=== PATIENT | male | born 1970 | race Caucasian/White ===

== ENCOUNTER 2021-12-13 17:29 | Outpatient (REF) | payer BC, SELFPAY ==
[2021-12-13 20:38] LABS: ALT 42 U/L (16-63); AST 23 U/L (15-37); Albumin 4.3 g/dL (3.4-5.0); Alkaline Phosphatase 102 U/L (46-116); Anion Gap 9.5 mmol/L (3-11); BUN 12 mg/dL (7-18); Bilirubin, Total 0.6 mg/dL (0.2-1.0); CO2 28.5 mmol/L (21.0-32.0); CREATININE 0.9 mg/dL (0.70-1.30); Calcium 9.7 mg/dL (8.5-10.1); Calculated LDL 149 mg/dL (<100); Chloride 101 mmol/L (98-107); Cholesterol 261 mg/dL (<200); Glucose 95 mg/dL (74-106); HDL Cholesterol 39 mg/dL (40-60); Potassium 4.6 mmol/L (3.5-5.1); Sodium 139 mmol/L (136-145); Total Protein 7.9 g/dL (6.4-8.2); Triglyceride 369 mg/dL (<150); Vitamin B12 992 pg/mL (193-986)
[2021-12-15 11:25] LABS: Lyme Ab w Rflx to Lyme Confirm Negative (Negative)
== END 2021-12-13 17:30 | disposition home or self-care (01) ==
LOC: NCHCN 17:29
PROVIDERS: PCP Family Medicine; Visit Provider Nurse Practitioner Family
DX: Z00.00 Encounter for general adult medical examination without abnormal findings (principal); R03.0 Elevated blood-pressure reading, without diagnosis of hypertension; R20.2 Paresthesia of skin; M25.59 Pain in other specified joint; Z12.11 Encounter for screening for malignant neoplasm of colon; Z12.12 Encounter for screening for malignant neoplasm of rectum
CPT/HCPCS: 80053; 80061; 82607; 83036; 86618

== ENCOUNTER 2022-06-19 08:48 | Outpatient (REF) | payer OTHER, SELFPAY ==
[2022-06-19 15:48] LABS: Calculated LDL 145 mg/dL (<100); Cholesterol 235 mg/dL (<200); Glucose 99 mg/dL (74-106); HDL Cholesterol 43 mg/dL (40-60); Triglyceride 237 mg/dL (<150)
== END 2022-06-19 08:49 | disposition home or self-care (01) ==
LOC: NCHCN 08:48
PROVIDERS: PCP Family Medicine; Visit Provider Nurse Practitioner Family
DX: R03.0 Elevated blood-pressure reading, without diagnosis of hypertension (principal); E78.70 Disorder of bile acid and cholesterol metabolism, unspecified
CPT/HCPCS: 80061; 82947

== ENCOUNTER 2023-02-25 09:49 | Outpatient (REF) | payer OTHER, SELFPAY ==
[2023-02-25 17:05] LABS: ALT 48 U/L (16-63); AST 24 U/L (15-37); Albumin 4.1 g/dL (3.4-5.0); Alkaline Phosphatase 95 U/L (46-116); Bilirubin, Total 1.4 mg/dL (0.2-1.0); Calculated LDL 72 mg/dL (<100); Cholesterol 153 mg/dL (<200); HDL Cholesterol 45 mg/dL (40-60); Total Protein 7.9 g/dL (6.4-8.2); Triglyceride 181 mg/dL (<150)
[2023-02-25 17:22] LABS: Bilirubin, Direct 0.3 mg/dL (0.0-0.2)
== END 2023-02-25 09:50 | disposition home or self-care (01) ==
LOC: NCHCN 09:49
PROVIDERS: PCP Family Medicine; Visit Provider Nurse Practitioner Family
DX: E78.70 Disorder of bile acid and cholesterol metabolism, unspecified (principal); Z00.00 Encounter for general adult medical examination without abnormal findings
CPT/HCPCS: 80061; 80076

== ENCOUNTER 2023-03-26 16:12 | Emergency (ER) | payer OTHER, SELFPAY ==
[2023-03-26] VITALS (48 sets, daily range): BP systolic 107–139; BP diastolic 61–99; PULSE 76–87; RESP 10–28; O2SAT 93–97
--- NOTE | 2023-03-26 16:00 | RT.EKG_ITS ---
APPROVED REPORT Exam: Resting ECG Reason for Exam: Patient Location: E HR:86 bpm ECG Measurements Heart Rate 86 AXIS WY 189 P 53 QRSd 68 QRS 20 QT 354 T 43 QTc 424 Conclusion Sinus rhythm...normal P axis, V-rate 60- 99 Probable left atrial enlargement...P >50mS, <-0.10mV V1 Extensive anterior infarct, acute...ST >0.20mV, V1-V6 sinus rhtyhm, normal axis, normal intervas, ST segment elevation V1-V5
--- NOTE | 2023-03-26 16:00 | DI.RAD_ITS ---
Exam(s) XR PORTABLE CHEST AP EXAM: XR PORTABLE CHEST AP CLINICAL HISTORY: chest pain TECHNIQUE: 2D digital imaging was performed of the chest. One image was obtained. An AP view was ob tained. COMPARISON: No exams were available for comparison FINDINGS: MEDIASTINUM: Normal. HEART: Normal. PULMONARY VASCULATURE: Normal. LUNGS: Clear. PLEURAL SPACE: No pleural effusion or pneumothorax. BONE:Within normal limits for the patient's age. OTHER FINDINGS:Normal. IMPRESSION: No acute pulmonary findings. DATA REPOSITORY: RADIATION DOSE DELIVERED:
[2023-03-26] MEDS: Clopidogrel 300 MG TAB PO (16:20)
[2023-03-26] MEDS: Tenecteplase 50 MG KIT IVP (16:24)
[2023-03-26 16:25] LABS: Abs Immature Grans 0.08 10^3/uL (0.0-0.06); Absolute Basophil Count 0.06 10^3/uL (0.0-0.2); Basophils % 0.4; Eosinophils % 1.4; HCT 45.6 % (40.0-50.0); HGB 15.8 g/dL (13.5-17.5); Immature Grans % 0.5; Lymphocytes % 19.9; MCH 30.3 pg (27.0-33.0); MCHC 34.6 % (32.0-36.0); MCV 88 fL (80-95); MPV 10.6 fL (8.0-11.0); Monocytes % 7.6; Neutrophils % 70.2; Platelet Count 308 10^3/uL (130-400); RBC 5.21 10^6/uL (4.36-5.78); RDW 12.8 % (11.8-14.1); RDW-SD 41.1 fL; WBC 16.22 10^3/uL (4.4-10.8)
[2023-03-26 16:26] LABS: Absolute Eosinophil Count 0.23 10^3/uL (0.0-0.7); Absolute Lymphocyte Count 3.23 10^3/uL (1.2-3.4); Absolute Monocyte Count 1.23 10^3/uL (0.1-0.8); Absolute Neutrophil Count 11.39 10^3/uL (1.2-6.7)
[2023-03-26] MEDS: Atorvastatin 40 MG TAB 80 MG PO (16:26)
--- NOTE | 2023-03-26 16:28 | ED.GENADUL_ITS ---
Discharge Plan Disposition Patient Disposition: Transfer-Acute Inpatient Care Specific Acute Inpt Facility: [facility] Condition: Stable Discharge Details Chief Complaint: Chest Pain Clinical Impression: ST elevation (STEMI) myocardial infarction Primary Care Provider: Becka Perez V ED Provider: Vinny Padilla Home Meds and New Rx's Prescriptions: No Action rosuvastatin 10 mg Tablet 10 mg PO DAILY Rx Instructions: every other day Medical Decision Making 52-year-old male history of hyperlipidemia, presents with nonexertional anterior chest pain that began 45 minutes before 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 Stat consultation with interventional cardiology at [facility] has been placed, patient has been accepted to the [facility] by Dr. Ramírez. Patient counseled and consented regarding treatment and transfer. Currently hemodynamically stable resting more comfortably. Will perform post lytics EKG, chest x-ray labs. 5: 04 patient resting comfortably hemodynamically stable great improvement of skin color and perfusion. Chest pain minimal. DHART air in route HPI General Date/Time Provider Initiated Documentation: 03/26/23 16:13 . 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 Anterior nature pressure-like. Given symptomatology and EKG findings in the field patient was administered 325 aspirin, glycerin with some mild improvement. Related Data Home Medications Medication Instructions Recorded Confirmed rosuvastatin 10 mg tablet 10 mg PO DAILY 03/26/23 03/26/23 Allergies Allergy/AdvReac Type Severity Reaction Status Date / Time No Known Allergies Allergy Unverified 03/26/23 16:13 General Stated Complaint: Chest Pain SAJAN: 2 Review of Systems Narrative: Review of Systems Constitutional: negative Eyes: negative ENT: negative Cardiovascular: Chest pain Respiratory: negative Gastrointestinal: negative : negative Musculoskeletal: negative Skin: negative Neurologic: negative Psych: negative PFSH All Active Problems (Updated 03/26/23 @ 17:05 by Vinny Padilla MD) ST elevation (STEMI) myocardial infarction (Acute) Social History Smoking/Tobacco Use Status: Unknown Smoking risk assessment performed?: Yes Substance use type: does not use Exam Narrative Exam Narrative: Physical Examination General: alert, awake, cooperative, resting comfortably, no acute distress HEENT: normocephalic, atraumatic; PERRL, EOM intact, conjunctiva normal; no nasal discharge; moist mucous membranes, oral and pharyngeal mucosa normal, tolerating secretions Neck: supple, trachea midline; full ROM Chest: normal to inspection Respiratory: normal respiratory effort, speaking in full sentences, clear to auscultation, no wheezing, rales or rhonchi Cardiac: regular rate, regular rhythm, S1S2 intact, no murmurs rubs or gallops; strong radial pulses bilaterally GI: abdomen soft, non-tender, non-distended; no palpable mass or hepatosplenomegaly Skin: no lesions, rashes or trauma appreciated Neuro: AAOx3, normal speech, moving all extremities Extremities: No appreciable peripheral edema Psych: Appropriate mood and affect Course Vital Signs Vital signs: Vital Signs Pulse 87 03/26/23 16:14 Respiratory Rate 18 03/26/23 16:14 Blood Pressure 115/79 03/26/23 16:14 Pulse Oximetry 94 03/26/23 16:14 Pulse 87 03/26/23 16:14 Respiratory Rate 18 03/26/23 16:18 Respiratory Effort Normal, Non-Labored 03/26/23 16:18 Respiratory Depth Normal 03/26/23 16:18 Respiratory Pattern Normal 03/26/23 16:18 Blood Pressure 115/79 03/26/23 16:14 Pulse Oximetry 94 03/26/23 16:14 Oxygen Delivery Method Room Air 03/26/23 16:14 Oxygen Flow Rate 0 03/26/23 16:14 Lab/Test Results Lab/Test Results: Laboratory Tests Range/Units 03/26/23 16:19 WBC (4.4-10.8) 10^3/uL 16.22 H RBC (4.36-5.78) 10^6/uL 5.21 Hgb (13.5-17.5) g/dL 15.8 Hct (40.0-50.0) % 45.6 MCV (80-95) fL 88 MCH (27.0-33.0) pg 30.3 MCHC (32.0-36.0) % 34.6 RDW (11.8-14.1) % 12.8 Plt Count (130-400) 10^3/uL 308 MPV (8.0-11.0) fL 10.6 Immature Gran % 0.5 Neutrophils % 70.2 Lymphocytes % 19.9 Monocytes % 7.6 Eosinophils % 1.4 Basophils % 0.4 Nucleated RBC % (0.0-0.3) % 0.0 Absolute Neutrophils (1.2-6.7) 10^3/uL 11.39 H Absolute Lymphocytes (1.2-3.4) 10^3/uL 3.23 Absolute Monocytes (0.1-0.8) 10^3/uL 1.23 H Absolute Eosinophils (0.0-0.7) 10^3/uL 0.23 Absolute Basophils (0.0-0.2) 10^3/uL 0.06
--- NOTE | 2023-03-26 16:30 | RT.EKG_ITS ---
APPROVED REPORT Exam: Resting ECG Reason for Exam: post lytics Patient Location: E HR:80 bpm ECG Measurements Heart Rate 80 AXIS ID 144 P 0 QRSd 117 QRS 102 QT 410 T -39 QTc 482 Conclusion Sinus rhythm...normal P axis, V-rate 60- 99 Ventricular premature complex...V complex w/ short R-R interval Left atrial enlargement...P, P'>60mS, <-0.15mV V1 Nonspecific intraventricular conduction delay...QRSd >115mS, not LBBB/RBBB Probable anteroseptal infarct, recent...Q, ST>0.15mV, T neg, V1-V2 sinus rhythm, normal axis, ST segment elevation ateriior septal , with deep q waves
[2023-03-26 16:39] LABS: INR 0.9 (0.9-1.1); PTT Activated 26.7 sec (21.5-31.9); Prothrombin Time 9.6 sec (9.3-11.0)
[2023-03-26 16:45] LABS: ALT 55 U/L (16-63); AST 63 U/L (15-37); Albumin 4.1 g/dL (3.4-5.0); Alkaline Phosphatase 98 U/L (46-116); Anion Gap 9.8 mmol/L (3-11); BUN 12 mg/dL (7-18); Bilirubin, Total 0.8 mg/dL (0.2-1.0); CO2 24.2 mmol/L (21.0-32.0); CREATININE 0.9 mg/dL (0.70-1.30); Calcium 9.2 mg/dL (8.5-10.1); Chloride 102 mmol/L (98-107); Estimated GFR 102.12 (mL/min/1.73m2); Glucose 129 mg/dL (74-106); Potassium 3.7 mmol/L (3.5-5.1); Sodium 136 mmol/L (136-145)
[2023-03-26 16:53] LABS: Troponin I 2510 ng/L (<or=60)
--- NOTE | 2023-03-26 16:59 | NUR.NOTE ---
after TNK admin pt showed significant improvement in chest pain and color. pt pain free at this time. A&O x4.
[2023-03-26 17:07] LABS: NT-proBNP 32 pg/mL (<300)
== END 2023-03-26 17:23 | disposition short-term general hospital (02) ==
PROVIDERS: Student in an Organized Health Care Education/Training Program; Emergency Provider Emergency Medicine; PCP Family Medicine
DX: I21.3 ST elevation (STEMI) myocardial infarction of unspecified site (principal); E78.5 Hyperlipidemia, unspecified
CPT/HCPCS: 36415; 80053; 93005; 96365; 96375; 96376; 99285; 71045; 83735; 83880; 84484; 85025; 85610; 85730; 93010; J3101

== ENCOUNTER 2023-04-03 11:04 | Outpatient (RCR) | payer OTHER, BC, SELFPAY | END 2023-04-10 23:59 | disposition home or self-care (01) | LOC: CR 11:04 | PROVIDERS: PCP Family Medicine; Visit Provider Internal Medicine Cardiovascular Disease ==

== ENCOUNTER 2023-04-26 09:17 | Outpatient (REF) | payer OTHER, BC, SELFPAY ==
[2023-04-26 17:33] LABS: ALT 66 U/L (16-63); AST 41 U/L (15-37); Alkaline Phosphatase 107 U/L (46-116); Anion Gap 9.4 mmol/L (3-11); BUN 13 mg/dL (7-18); Bilirubin, Total 1.2 mg/dL (0.2-1.0); CO2 26.6 mmol/L (21.0-32.0); CREATININE 0.9 mg/dL (0.70-1.30); Calcium 9.4 mg/dL (8.5-10.1); Chloride 106 mmol/L (98-107); Estimated GFR 102.12 (mL/min/1.73m2); Glucose 110 mg/dL (74-106); NT-proBNP 644 pg/mL (<300); Potassium 4.3 mmol/L (3.5-5.1); Sodium 142 mmol/L (136-145); Total Protein 7.5 g/dL (6.4-8.2)
== END 2023-04-26 09:18 | disposition home or self-care (01) ==
LOC: NCHCN 09:17
PROVIDERS: PCP Family Medicine; Visit Provider Nurse Practitioner Family
DX: I21.3 ST elevation (STEMI) myocardial infarction of unspecified site (principal); R79.89 Other specified abnormal findings of blood chemistry; R17 Unspecified jaundice
CPT/HCPCS: 80053; 83880

== ENCOUNTER 2023-05-10 08:00 | Outpatient (RCR) | payer OTHER, SELFPAY | END 2023-05-10 23:59 | disposition home or self-care (01) | LOC: CR 08:00 | PROVIDERS: PCP Family Medicine; Visit Provider Internal Medicine Cardiovascular Disease | DX: I25.2 Old myocardial infarction (principal); Z51.89 Encounter for other specified aftercare | CPT/HCPCS: S9472 ==

== ENCOUNTER 2023-06-05 08:00 | Outpatient (RCR) | payer OTHER, SELFPAY | END 2023-06-10 23:59 | disposition home or self-care (01) | LOC: CR 08:00 | PROVIDERS: PCP Family Medicine; Visit Provider Internal Medicine Cardiovascular Disease | DX: I25.2 Old myocardial infarction (principal); Z95.2 Presence of prosthetic heart valve; Z51.89 Encounter for other specified aftercare | CPT/HCPCS: S9472 ==

== ENCOUNTER 2023-07-10 11:16 | Outpatient (RCR) | payer OTHER, BC, SELFPAY | END 2023-07-11 23:59 | disposition home or self-care (01) | LOC: CR 11:16 | PROVIDERS: PCP Family Medicine; Visit Provider Internal Medicine Cardiovascular Disease | DX: I25.2 Old myocardial infarction (principal); Z95.5 Presence of coronary angioplasty implant and graft; Z51.89 Encounter for other specified aftercare | CPT/HCPCS: S9472 ==

== ENCOUNTER 2023-07-23 09:12 | Outpatient (REF) | payer OTHER, SELFPAY ==
[2023-07-23 18:45] LABS: ALT 42 U/L (16-63); AST 26 U/L (15-37); Albumin 3.9 g/dL (3.4-5.0); Alkaline Phosphatase 94 U/L (46-116); Anion Gap 9.5 mmol/L (3-11); BUN 16 mg/dL (7-18); Bilirubin, Total 1.2 mg/dL (0.2-1.0); CO2 28.5 mmol/L (21.0-32.0); CREATININE 0.9 mg/dL (0.70-1.30); Calcium 9.4 mg/dL (8.5-10.1); Chloride 100 mmol/L (98-107); Creatine Kinase 122 U/L (39-308); Estimated GFR 102.12 (mL/min/1.73m2); Glucose 109 mg/dL (74-106); NT-proBNP 165 pg/mL (<300); Potassium 4.1 mmol/L (3.5-5.1); Sodium 138 mmol/L (136-145)
[2023-07-23 20:19] LABS: Calculated LDL 43 mg/dL (<100); Cholesterol 119 mg/dL (<200); HDL Cholesterol 46 mg/dL (40-60); Total Protein 7.2 g/dL (6.4-8.2); Triglyceride 152 mg/dL (<150)
== END 2023-07-23 09:13 | disposition home or self-care (01) ==
LOC: NCHCN 09:12
PROVIDERS: PCP Family Medicine; Visit Provider Nurse Practitioner Family
DX: I25.10 Atherosclerotic heart disease of native coronary artery without angina pectoris
CPT/HCPCS: 80053; 80061; 82550; 83880

== ENCOUNTER 2023-07-29 08:00 | Outpatient (RCR) | payer OTHER, BC, SELFPAY | END 2023-08-10 23:59 | disposition home or self-care (01) | LOC: CR 08:00 | PROVIDERS: PCP Family Medicine; Visit Provider Internal Medicine Cardiovascular Disease | DX: I25.2 Old myocardial infarction (principal); Z95.5 Presence of coronary angioplasty implant and graft; Z51.89 Encounter for other specified aftercare | CPT/HCPCS: S9472 ==

== ENCOUNTER 2024-02-17 11:09 | Emergency (ER) | payer OTHER, SELFPAY ==
[2024-02-17] VITALS (10 sets, daily range): BP systolic 104–120; BP diastolic 70–85; PULSE 66–82; RESP 15–21; TEMP 36.5–36.7; O2SAT 96–98
--- NOTE | 2024-02-17 11:00 | RT.EKG_ITS ---
APPROVED REPORT Exam: Resting ECG Reason for Exam: chest pain Patient Location: E HR:74 bpm ECG Measurements Heart Rate 74 AXIS WA 178 P 68 QRSd 76 QRS 8 QT 378 T 55 QTc 419 Conclusion Sinus rhythm...normal P axis, V-rate 60- 99 Probable left atrial enlargement...P >50mS, <-0.10mV V1 Anterior infarct, old...Q >40mS, abnormal ST-T, V2-V5 no stemi
--- NOTE | 2024-02-17 11:40 | ED.GENADUL_ITS ---
Discharge Plan Disposition Patient Disposition: Against Medical Advice Condition: Stable Discharge Details Clinical Impression: Chest pain Primary Care Provider: Becka Perez V ED Provider: Suellen Lynch Home Meds and New Rx's Prescriptions: No Action rosuvastatin 10 mg Tablet 10 mg PO DAILY Rx Instructions: every other day Discharge Instructions Instructions: Chest Pain (ED) Additional Instructions: At this time you do not want to wait for your second troponin. The initial workup is within normal limits. However the labs can elevate after a number of hours. Due to your history and concerning pain that was relieved with nitro I do recommend that you wait for the second troponin however please return to the ER for any return of pain, sweatiness nausea or concerns. Follow up with primary care provider in 3-5 days. Return to ED sooner if any worsening or concerns. At this time you have opted to leave AGAINST MEDICAL ADVICE. We are unable to adequately clear your symptoms of being cardiac related. Please continue your previously prescribed medications as directed. Please follow up closely with your PCP or ela teacher. Referrals: Becka Perez MD [Primary Care Provider] - 3 days Discharge Data Discharge Date/Time-TO BE ENTERED AT DEPARTURE: 02/17/24 13:19 HPI General Mode of arrival: ambulatory . Date/Time Provider Initiated Documentation: 02/17/24 11:33 . Limitations to Documentation: no limitations . Information obtained by: patient, RN notes reviewed and old records reviewed . HPI Narrative: 53-year-old male presents to the ER with a chief complaint of chest pain which began proximately 50 minutes prior to arrival, he did take a sublingual nitro prior to arrival and the pain initially relieved and then came back. On exam he reports no chest pain or chest pressure. He does have a history of an MD with stents placed at [facility] in March. He does take a statin, Brilinta, 1 chewable baby aspirin a day and a beta-raphael which she did take his normal daily medications. He reports diaphoresis with initial onset of symptoms which has s mary ann resolved. Denies any coughing up blood or hemoptysis or any other associated symptoms. No edema noted in his lower extremities. He does see Dr. Adhikari for cardiology. Related Data Home Medications Medication Instructions Recorded Confirmed rosuvastatin 10 mg tablet 10 mg PO DAILY 03/26/23 03/26/23 Allergies Allergy/AdvReac Type Severity Reaction Status Date / Time No Known Allergies Allergy Unverified 03/26/23 16:13 General Stated Complaint: Chest Pain SAJAN: 3 Review of Systems All systems reviewed & are unremarkable except as noted in HPI and below Cardiovascular Cardiovascular: Reports as per HPI, Reports chest pain, Reports diaphoresis and Denies leg edema Respiratory Respiratory: Reports system reviewed and no additional complaints, except as documented Gastrointestinal Gastrointestinal: Denies abdominal pain, Denies nausea and Denies vomiting Exam Narrative Exam Narrative: Constitutional: Alert and oriented x3. Appears stated age. Normal body habitus. Head: Normocephalic, no trauma. Eyes: Pupils PERRL, Red reflex noted, EOM's intact. Eyelids symmetrical without lesions, discharge, or swelling. ENT: Bilateral TM's WNL, External ear normal to inspection, no mastoid TTP, swelling, or erythema, Nasal turbinates WNL, no nasal discharge. Normal dentition, Posterior pharynx WNL, no exudate. Chest: RRR, Normal S1, S2, distal pulses intact. Resp: Lungs clear to auscultation bilaterally, no wheezes, rales, or rhonchi. Abdomen: Soft, non-distended, Normoactive bowel sounds all 4 quads. Musculoskeletal: Normal gait, Skin: No suspicious rashes or lesions. Capillary refill less than 2 sec. Neurologic: Cranial nerves II-XII intact. Alert and oriented x 3. Motor: No deficits noted. Sensory: Intact bilaterally all 4 extremities.. Hematologic/Lymphatic: No ecchymosis, no lymphadenopathy. Course Vital Signs Vital signs: Vital Signs Temperature 36.6 C 02/17/24 11:11 Pulse 76 02/17/24 11:11 Respiratory Rate 16 02/17/24 11:11 Blood Pressure 115/83 02/17/24 11:11 Pulse Oximetry 96 02/17/24 11:11 Temperature 36.6 C 02/17/24 11:11 Temperature Source Tympanic 02/17/24 11:11 Pulse 76 02/17/24 11:11 Respiratory Rate 16 02/17/24 11:11 Blood Pressure 115/83 02/17/24 11:11 Blood Pressure Position Sitting 02/17/24 11:11 Pulse Oximetry 96 02/17/24 11:11 Oxygen Delivery Method Room Air 02/17/24 11:11 Oxygen Flow Rate 0 02/17/24 11:11 Pain Level 0 02/17/24 11:11 Medical Decision Making 53-year-old male presents to the ER with a chief complaint of chest pain which began proximately 50 minutes prior to arrival, he did take a sublingual nitro prior to arrival and the pain initially relieved and then came back. On exam he reports no chest pain or chest pressure. He does have a history of an MD with stents placed at [facility] in March. He does take a statin, Brilinta, 1 chewable baby aspirin a day and a beta-raphael which she did take his normal daily medications. He reports diaphoresis with initial onset of symptoms which has since resolved. Denies any coughing up blood or hemoptysis or any other associated symptoms. No edema noted in his lower extremities. He does see Dr. Adhikari for cardiology. EKG was reviewed by [Dr. Dunham] ER attending, old EKG available for review., No STEMI at this time. There is an old anterior infarct noted, Informed by staffing clerk, patient does not want to wait for his serial troponin. Discussed risks and benefits of this, patient verbalized understanding. CBC shows no leukocytosis, largely within normal limits, glucose 127, Getting initial troponin within normal limits. Patient does not wish to wait for the second troponin. I did discuss risks and benefits of this and the reason that we do a second draw. He is requesting to be discharged home. At this time I will have him sign out AMA due to his cardiac history and how recent the chest pain began. And that it was relieved with nitro. Patient left AGAINST MEDICAL ADVICE despite my explanations for risks and benefits. Patient requesting to leave AMA. The patient appears clinically sober and is not under the influence of any known substances. Discussed risks and benefits with patient. Patient verbalizes understanding of situation and the risks of leaving including worsening condition, developing disability, including but not limited to . Discussed results of labs and imaging, if they were performed and recommendations for further treatment and/or observation. The patient verbalizes understanding of the results discussed. Every effort was made to involve family and situation discussed. At this time patient has opted to leave against medical advice. Patient is alert and oriented and has the capacity to make own decisions. This text was generated using [employer] system, please disregard any oddities of phrase or misspellings. Medical Records Medical records reviewed: Yes I reviewed the patient's medical records. Imaging Data Radiologic Study: Imaging: X-Ray Radiologist's impression: XR PORTABLE CHEST AP EXAM: XR PORTABLE CHEST AP CLINICAL HISTORY: Chest Pain TECHNIQUE: 2D digital imaging was performed. COMPARISON: CR XR PORTABLE CHEST AP from 03/26/2023 FINDINGS: LUNGS: Clear. No pleural abnormality seen. HEART: Normal size. AORTA: Normal diameter. BONES: Unremarkable for age. Soft tissues: Unremarkable. IMPRESSION: No acute findings. Lab Data Lab results reviewed: Yes I reviewed the patient's lab results. Labs: Laboratory Tests Range/Units 02/17/24 02/17/24 11:41 14:33 WBC (4.4-10.8) 10^3/uL 10.41 RBC (4.36-5.78) 10^6/uL 4.93 Hgb (13.5-17.5) g/dL 15.2 Hct (40.0-50.0) % 44.4 MCV (80-95) fL 90 MCH (27.0-33.0) pg 30.8 MCHC (32.0-36.0) % 34.2 RDW (11.8-14.1) % 12.8 Plt Count (130-400) 10^3/uL 268 MPV (8.0-11.0) fL 10.6 Immature Gran % 0.3 Neutrophils % 58.5 Lymphocytes % 30.3 Monocytes % 6.2 Eosinophils % 4.1 Basophils % 0.6 Nucleated RBC % (0.0-0.3) % 0.0 Absolute Neutrophils (1.2-6.7) 10^3/uL 6.09 Absolute Lymphocytes (1.2-3.4) 10^3/uL 3.15 Absolute Monocytes (0.1-0.8) 10^3/uL 0.65 Absolute Eosinophils (0.0-0.7) 10^3/uL 0.43 Absolute Basophils (0.0-0.2) 10^3/uL 0.06 Sodium (136-145) mmol/L 141 Potassium (3.5-5.1) mmol/L 3.6 Chloride (98-107) mmol/L 102 Carbon Dioxide (21.0-32.0) mmol/L 26.3 Anion Gap (3-11) mmol/L 12.7 H BUN (7-18) mg/dL 14 Creatinine (0.70-1.30) mg/dL 1.0 Est GFR (CKD-EPI 2020) (mL/min/1.73m2) 89.44 Glucose (74-106) mg/dL 127 H Calcium (8.5-10.1) mg/dL 9.1 Magnesium (1.8-2.4) mg/dL 1.8 Total Bilirubin (0.2-1.0) mg/dL 0.7 AST (15-37) U/L 21 ALT (16-63) U/L 41 Alkaline Phosphatase (46-116) U/L 96 Troponin I (< or =60) ng/L < 50 Cancelled Total Protein (6.4-8.2) g/dL 7.7 Albumin (3.4-5.0) g/dL 4.0 Quality:SDOH Health Related Social Needs: No Data to Display PFSH All Active Problems (Updated 02/17/24 @ 13:09 by Suellen Lynch NP) Chest pain (Acute) Social History Smoking/Tobacco Use Status: Unknown Smoking risk assessment performed?: Yes Substance use type: does not use Housing: house Do you feel safe at home: Yes Do you feel safe in your relationship?: Yes
[2024-02-17 11:51] LABS: Abs Immature Grans 0.03 10^3/uL (0.0-0.06); Absolute Basophil Count 0.06 10^3/uL (0.0-0.2); Absolute Eosinophil Count 0.43 10^3/uL (0.0-0.7); Absolute Lymphocyte Count 3.15 10^3/uL (1.2-3.4); Absolute Monocyte Count 0.65 10^3/uL (0.1-0.8); Absolute Neutrophil Count 6.09 10^3/uL (1.2-6.7); Basophils % 0.6; Eosinophils % 4.1; HCT 44.4 % (40.0-50.0); HGB 15.2 g/dL (13.5-17.5); Immature Grans % 0.3; Lymphocytes % 30.3; MCH 30.8 pg (27.0-33.0); MCHC 34.2 % (32.0-36.0); MCV 90 fL (80-95); MPV 10.6 fL (8.0-11.0); Monocytes % 6.2; Neutrophils % 58.5; Platelet Count 268 10^3/uL (130-400); RBC 4.93 10^6/uL (4.36-5.78); RDW 12.8 % (11.8-14.1); RDW-SD 42.5 fL; WBC 10.41 10^3/uL (4.4-10.8)
[2024-02-17] MEDS: Aspirin 81 MG CHEW 243 MG CH (11:53)
[2024-02-17 12:08] LABS: ALT 41 U/L (16-63); AST 21 U/L (15-37); Alkaline Phosphatase 96 U/L (46-116); Anion Gap 12.7 mmol/L (3-11); BUN 14 mg/dL (7-18); Bilirubin, Total 0.7 mg/dL (0.2-1.0); CO2 26.3 mmol/L (21.0-32.0); Calcium 9.1 mg/dL (8.5-10.1); Chloride 102 mmol/L (98-107); Estimated GFR 89.44 (mL/min/1.73m2); Glucose 127 mg/dL (74-106); Magnesium 1.8 mg/dL (1.8-2.4); Potassium 3.6 mmol/L (3.5-5.1); Sodium 141 mmol/L (136-145); Total Protein 7.7 g/dL (6.4-8.2); Troponin I < 50 ng/L (< or =60)
--- NOTE | 2024-02-17 12:59 | DI.RAD_ITS ---
Exam(s) XR PORTABLE CHEST AP EXAM: XR PORTABLE CHEST AP CLINICAL HISTORY: Chest Pain TECHNIQUE: 2D digital imaging was performed. COMPARISON: CR XR PORTABLE CHEST AP from 03/26/2023 FINDINGS: LUNGS: Clear. No pleural abnormality seen. HEART: Normal size. AORTA: Normal diameter. BONES: Unremarkable for age. Soft tissues: Unremarkable. IMPRESSION: No acute findings. DATA REPOSITORY: RADIATION DOSE DELIVERED:
== END 2024-02-17 13:19 | disposition left against medical advice (07) ==
PROVIDERS: Emergency Provider Registered Nurse Emergency; PCP Family Medicine
DX: R07.9 Chest pain, unspecified (principal); R42 Dizziness and giddiness; R94.31 Abnormal electrocardiogram [ECG] [EKG]; I25.2 Old myocardial infarction; Z79.82 Long term (current) use of aspirin; Z53.29 Procedure and treatment not carried out because of patient's decision for other reasons
CPT/HCPCS: 80053; 93005; 99285; 71045; 83735; 84484; 85025; 93010; 99284

== ENCOUNTER 2024-02-19 18:57 | Outpatient (REF) | payer OTHER, SELFPAY ==
[2024-02-19 15:41] LABS: Creatine Kinase 155 U/L (39-308); HDL Cholesterol 42 mg/dL (40-60); LDL CHOLESTEROL 53 mg/dL (<100)
== END 2024-02-19 18:58 | disposition home or self-care (01) ==
LOC: NCHCN 18:57
PROVIDERS: PCP Family Medicine; Visit Provider Nurse Practitioner Family
DX: R07.9 Chest pain, unspecified (principal)
CPT/HCPCS: 82550; 83721; 83718

== ENCOUNTER 2024-05-22 22:16 | Outpatient (REF) | payer OTHER, SELFPAY ==
[2024-05-22 16:34] LABS: Hemoglobin A1C 6.2 % (<5.7)
[2024-05-22 16:40] LABS: ALT 44 U/L (16-63); AST 32 U/L (15-37); Albumin 3.9 g/dL (3.4-5.0); Alkaline Phosphatase 94 U/L (46-116); Anion Gap 10.2 mmol/L (3-11); BUN 11 mg/dL (7-18); Bilirubin, Total 0.95 mg/dL (0.2-1.0); CO2 27.8 mmol/L (21.0-32.0); CREATININE 0.9 mg/dL (0.70-1.30); Calcium 9.5 mg/dL (8.5-10.1); Calculated LDL 70 mg/dL (<100); Chloride 104 mmol/L (98-107); Cholesterol 164 mg/dL (<200); Estimated GFR 101.49 (mL/min/1.73m2); Glucose 100 mg/dL (74-106); HDL Cholesterol 44 mg/dL (40-60); Potassium 4.5 mmol/L (3.5-5.1); Sodium 142 mmol/L (136-145); Triglyceride 251 mg/dL (<150)
== END 2024-05-22 22:17 | disposition home or self-care (01) ==
LOC: NCHCN 22:16
PROVIDERS: PCP Family Medicine; Visit Provider Nurse Practitioner Family
DX: Z51.81 Encounter for therapeutic drug level monitoring (principal); I25.10 Atherosclerotic heart disease of native coronary artery without angina pectoris; Z13.220 Encounter for screening for lipoid disorders; R73.03 Prediabetes
CPT/HCPCS: 80053; 80061; 83036

== ENCOUNTER 2024-10-19 18:26 | Outpatient (REF) | payer OTHER, SELFPAY ==
[2024-10-19 20:55] LABS: Folate > 20.0 ng/mL (8.6-20.0); Vitamin B12 645 pg/mL (193-986)
== END 2024-10-19 18:27 | disposition home or self-care (01) ==
LOC: NCHCN 18:26
PROVIDERS: PCP Family Medicine; Visit Provider Nurse Practitioner Family
DX: R20.2 Paresthesia of skin (principal)
CPT/HCPCS: 82607; 82746

== ENCOUNTER 2024-11-03 03:07 | Outpatient (CLI) | payer OTHER, SELFPAY ==
--- NOTE | 2024-11-03 09:30 | DI.RAD_ITS ---
Exam(s) XR LUMBAR SPINE COMP W FLEX/EX EXAM: XR LUMBAR SPINE COMP W FLEX/EX CLINICAL HISTORY: R20.2 Paresthesia of skin. TECHNIQUE: 2D digital imaging was performed. Five views. COMPARISON: No exams were available for comparison FINDINGS: BONES: No fracture or destructive lesion. Vertebral body heights are maintained. Minimal endplate o steophytes. Mild facet hypertrophy identified at L5-S1.. DISKS: Mild narrowing of the posterior aspect of the L5-S1 disc space. The remaining intervertebra l disc spaces are maintained. ALIGNMENT: Lumbar spinal alignment is within normal limits. SOFT TISSUE: Normal. IMPRESSION: Mild degenerative changes at L5-S1. DATA REPOSITORY: RADIATION DOSE DELIVERED:
== END 2024-11-03 03:27 ==
LOC: DI 03:07
PROVIDERS: PCP Family Medicine; Visit Provider Nurse Practitioner Family
DX: M51.370 Other intervertebral disc degeneration, lumbosacral region with discogenic back pain only (principal)
CPT/HCPCS: 72114